=== PATIENT | male | born 1975 | race Two or more races ===

== ENCOUNTER 2020-04-30 15:12 | Emergency (ER) | payer MEDICAID ==
[~2020-04-30] VITALS: Ht 170.2 cm; Wt 86.2 kg
--- NOTE | 2020-04-30 15:12 | NUR ---
PT BIB SELF C/O PAINFUL URINATION AND BILATERAL FLANK PAIN SINCE TUESDAY. PT IS AAOX4, NOT IN RESPIRATORY DISTRESS, HOOKED TO BAR PORTER, KEPT RESTED AND COMFORTABLE. WILL CONTINUE TO MONITOR.
--- NOTE | 2020-04-30 15:53 | NUR ---
URINE SPECIMEN COLLECTED AND SENT TO LAB.
--- NOTE | 2020-04-30 15:59 | NUR ---
SEEN AND EXAMINED BY .
[2020-04-30] MEDS ORDERED: IV NS 0.9% 1,000 ML BAG IV ONE (16:00)
[2020-04-30] MEDS ORDERED: ONDANSETRON HCL/PF 4 MG/2 ML VIAL IVP ONE (16:00)
[2020-04-30] MEDS ORDERED: KETOROLAC TROMETHAMINE INJ 30 MG/ML VIAL IV ONE ×2 (16:00→18:00)
[2020-04-30] MEDS ORDERED: KETOROLAC TROMETHAMINE 15 MG/ML VIAL ONE ×2 (16:19→17:41)
[2020-04-30] MEDS ORDERED: ONDANSETRON HCL/PF 4 MG/2 ML VIAL ONE (16:19)
[2020-04-30 16:26] LABS: BASOPHILS % (AUTO) 0.6 % (0.0-2.0); HEMATOCRIT 46 % (39-51); HEMOGLOBIN 15.2 g/dL (13.5-17.5); LYMPHOCYTES # (AUTO) 0.9 /CMM (0.8-4.8); LYMPHOCYTES % (AUTO) 16.9 % (20.0-44.0); MEAN CORPUSCULAR HGB CONC 33 g/dl (31.0-36.0); MEAN CORPUSCULAR VOLUME 95 fL (80-96); MONOCYTES # (AUTO) 0.6 /CMM (0.1-1.30); MONOCYTES % (AUTO) 10.9 % (2.0-12.0); NEUTROPHILS # (AUTO) 3.8 /CMM (1.8-8.9); NEUTROPHILS % (AUTO) 71.6 % (43.0-81.0); PLATELET COUNT (AUTO) 175 /CMM (150-450); RED BLOOD CELL COUNT(AUTO) 4.88 MIL/uL (4.5-6.0); WHITE BLOOD COUNT (AUTO) 5.3 K/uL (4.3-11.0)
[2020-04-30 16:33] LABS: BILIRUBIN,URINE Negative (NEGATIVE); BLOOD, URINE Moderate Ery/uL (NEGATIVE); COLOR,URINE YELLOW (YELLOW); LEUKOCYTE ESTERASE ,URINE Negative (NEGATIVE); NITRITE, URINE Negative (NEGATIVE); PROTEIN,URINE >=300 mg/dl (NEGATIVE); UGLUCOSE 500 MG/DL mg/dL (NEGATIVE); UROBILINOGEN,URINE 0.2 EU/dL (0.2)
--- NOTE | 2020-04-30 16:42 | NUR ---
PT IS WHEELED TO CT SCAN VIA [facility].
[2020-04-30 16:59] LABS: ALBUMIN 3.3 g/dL (3.4-5.0); BILIRUBIN,DIRECT 0.1 mg/dL (0.0-0.2); BILIRUBIN,TOTAL 0.3 mg/dL (0.2-1.0); CALCIUM, SERUM 8.8 mg/dL (8.5-10.1); CREATININE 1.2 mg/dL (0.6-1.3); POTASSIUM 4.3 mmol/L (3.5-5.1); TOTAL PROTEIN, SERUM 7.6 g/dL (6.4-8.2)
[2020-04-30 17:42] LABS: BACTERIA,URINE Few /HPF (None Seen); SQUAMOUS EPITHELIAL CELL,UR Few /HPF (None Seen); WBC,URINE 0-2 /HPF (0-3)
[2020-04-30 18:39] VITALS: BP 132/84
--- NOTE | 2020-04-30 18:39 | NUR ---
IV removed. Catheter intact and site benign. Pressure and 4x4 applied to site. No bleeding noted. Patient discharged to home in stable condition. Written and verbal after care instructions given. Patient verbalizes understanding of instruction.
--- NOTE | 2020-05-01 19:04 | NUR ---
CALLED PATIENT JAQUAN GOTTI FOR POSITIVE COVID RESULT. Addendum: 05/01/20 at 1907 by ROALCANCES INSTTRUCTED PATIENT TO QUARANTINE X14 DAYS.
== END 2020-04-30 18:40 | disposition home or self-care (01) ==
LOC: ER 15:16
DX: U07.1 COVID-19 (principal); R91.8 Other nonspecific abnormal finding of lung field; R10.9 Unspecified abdominal pain; K40.90 Unilateral inguinal hernia, without obstruction or gangrene, not specified as recurrent; I10 Essential (primary) hypertension; E11.65 Type 2 diabetes mellitus with hyperglycemia
CPT/HCPCS: 36415; 71045; 74176; 76705; 80048; 80076; 81001; 83605; 83690; 85025; 93005; 96361; 96374; 96375; 96376; 99285; C9803; J1885 ×2; J2405; J7030; U0003

== ENCOUNTER 2022-04-26 19:44 | Emergency (ER) | payer MEDICAID ==
[~2022-04-26] VITALS: Ht 170.2 cm; Wt 81.6 kg
--- NOTE | 2022-04-26 21:23 | NUR ---
URINE COLLECTED AND SENT TO LAB
[2022-04-26 22:03] LABS: BILIRUBIN,URINE NEGATIVE (NEGATIVE); COLOR,URINE YELLOW (YELLOW); LEUKOCYTE ESTERASE ,URINE NEGATIVE (NEGATIVE); NITRITE, URINE NEGATIVE (NEGATIVE); PROTEIN,URINE NEGATIVE (NEGATIVE); UGLUCOSE NEGATIVE (NEGATIVE); UROBILINOGEN,URINE 0.2 EU/dL (0.2)
[2022-04-26] MEDS ORDERED: KETOROLAC TROMETHAMINE 15 MG/ML VIAL ONE (22:23)
[2022-04-26] MEDS ORDERED: KETOROLAC TROMETHAMINE INJ 30 MG/ML VIAL IV ONE (22:30)
[2022-04-26] MEDS ORDERED: IV NS 0.9% 1,000 ML BAG IV ONE (22:30)
--- NOTE | 2022-04-26 22:43 | NUR ---
20G IV STARTED AT [facility]. BLOOD DRAWN AND SENT TO LAB
[2022-04-26 23:29] LABS: BASOPHILS # (AUTO) 0.1 K/uL (0.0-0.2); BASOPHILS % (AUTO) 0.7 % (0.0-2.0); EOSINOPHILS % (AUTO) 1.4 % (0.0-6.0); HEMATOCRIT 45 % (39-51); HEMOGLOBIN 14.7 g/dL (13.5-17.5); LYMPHOCYTES # (AUTO) 3.1 K/uL (0.8-4.8); LYMPHOCYTES % (AUTO) 28.8 % (20.0-44.0); MEAN CORPUSCULAR HGB CONC 33 g/dl (31.0-36.0); MEAN CORPUSCULAR VOLUME 95 fL (80-96); MONOCYTES % (AUTO) 9.3 % (2.0-12.0); NEUTROPHILS # (AUTO) 6.4 K/uL (1.8-8.9); NEUTROPHILS % (AUTO) 59.8 % (43.0-81.0); PLATELET COUNT (AUTO) 296 K/uL (150-450); RED BLOOD CELL COUNT(AUTO) 4.76 MIL/uL (4.5-6.0); WHITE BLOOD COUNT (AUTO) 10.8 K/uL (4.3-11.0)
[2022-04-26 23:42] LABS: CALCIUM, SERUM 9.2 mg/dL (8.5-10.1)
[2022-04-26 23:56] LABS: ALBUMIN 3.9 g/dL (3.4-5.0); BILIRUBIN,DIRECT 0.1 mg/dL (0.0-0.2); BILIRUBIN,TOTAL 0.5 mg/dL (0.2-1.0); TOTAL PROTEIN, SERUM 7.3 g/dL (6.4-8.2)
[2022-04-26 23:58] LABS: POTASSIUM 3.8 mmol/L (3.5-5.1)
[2022-04-27] MEDS ORDERED: DOCU100C36 PO (00:26)
--- NOTE | 2022-04-27 00:36 | NUR ---
IV removed. Catheter intact and site benign. Pressure and 4x4 applied to site. No bleeding noted.Patient discharged to home in stable condition. Written and verbal after care instructions given. Patient verbalizes understanding of instruction.
--- NOTE | 2022-04-27 00:40 | NUR ---
Patient discharged to home in stable condition. Written and verbal after care instructions given. Patient verbalizes understanding of instruction.
[2022-04-27 00:52] VITALS: BP 125/84
== END 2022-04-27 00:52 | disposition home or self-care (01) ==
LOC: ER 19:55
DX: K59.00 Constipation, unspecified (principal); I10 Essential (primary) hypertension; E11.9 Type 2 diabetes mellitus without complications; Z79.899 Other long term (current) drug therapy
CPT/HCPCS: 99284; 74176; 96374; 96361; 85025; 80048; 83690; 80076; 81003; 36415; J7030; J1885

== ENCOUNTER 2023-01-10 18:02 | Emergency (ER) | payer MEDICAID ==
[~2023-01-10] VITALS: Ht 170.2 cm; Wt 81.6 kg
[~2023-01-10 18:02] MED LIST: DOCU100C36 PO
[2023-01-10 18:58] VITALS: BP 163/67; TEMP 98.2
[2023-01-10] MEDS ORDERED: IBUP-1957 PO (19:52)
[2023-01-10] MEDS ORDERED: CYCL10TA9 PO (19:52)
[2023-01-10] MEDS ORDERED: IBUPROFEN 600 MG TABLET ONE (19:56)
[2023-01-10] MEDS ORDERED: CYCLOBENZAPRINE 10 MG TABLET ONE (19:56)
[2023-01-10] MEDS ORDERED: IBUPROFEN 400 MG TABLET PO ONE (20:00)
[2023-01-10] MEDS ORDERED: CYCLOBENZAPRINE 10 MG TABLET PO ONE (20:00)
[2023-01-10 21:07] VITALS: O2SAT 95
== END 2023-01-10 21:07 | disposition home or self-care (01) ==
LOC: ER 18:13
DX: M54.41 Lumbago with sciatica, right side (principal); I10 Essential (primary) hypertension; E11.9 Type 2 diabetes mellitus without complications; Z79.899 Other long term (current) drug therapy

== ENCOUNTER 2023-01-13 01:46 | Emergency (ER) | payer MEDICAID ==
[~2023-01-13] VITALS: Ht 170.2 cm; Wt 81.6 kg
[~2023-01-13 01:46] MED LIST changes: +CYCL10TA9 PO; +IBUP-1957 PO
[2023-01-13 02:24] VITALS: BP 154/76; TEMP 98.1
[2023-01-13] MEDS ORDERED: PRED50TA PO (02:49)
[2023-01-13] MEDS ORDERED: HYDR-3980 PO (02:49)
[2023-01-13] MEDS ORDERED: HYDROCODONE/APAP 5/325MG TABLET PO ONE (03:00)
[2023-01-13] MEDS ORDERED: predniSONE 50 MG TABLET PO ONE (03:00)
[2023-01-13] MEDS ORDERED: HYDROCODONE/APAP 5/325MG TABLET ONE (03:15)
[2023-01-13] MEDS ORDERED: predniSONE 20 MG TABLET ONE (03:16)
[2023-01-13 03:42] VITALS: O2SAT 98
== END 2023-01-13 03:43 | disposition home or self-care (01) ==
LOC: ER 01:48
DX: M54.41 Lumbago with sciatica, right side (principal); I10 Essential (primary) hypertension; E11.9 Type 2 diabetes mellitus without complications

== ENCOUNTER 2023-01-22 08:23 | Emergency (ER) | payer MEDICAID ==
[~2023-01-22] VITALS: Ht 170.2 cm; Wt 81.6 kg
[~2023-01-22 08:23] MED LIST changes: +HYDR-3980 PO; +PRED50TA PO
[2023-01-22] MEDS ORDERED: KETOROLAC TROMETHAMINE INJ 30 MG/ML VIAL IV ONE ×2 (09:30→11:30)
[2023-01-22] MEDS ORDERED: CYCLOBENZAPRINE 10 MG TABLET PO ONE (09:30)
[2023-01-22] MEDS ORDERED: IV NS 0.9% 1,000 ML IV ONE (09:30)
[2023-01-22] MEDS ORDERED: CYCLOBENZAPRINE 10 MG TABLET ONE (09:35)
[2023-01-22] MEDS ORDERED: KETOROLAC TROMETHAMINE 15 MG/ML VIAL ONE ×2 (09:35→11:06)
[2023-01-22 09:44] LABS: BASOPHILS # (AUTO) 0.1 K/uL (0.0-0.2); BASOPHILS % (AUTO) 0.6 % (0.0-2.0); EOSINOPHILS # (AUTO) 0.2 K/uL (0.0-0.7); EOSINOPHILS % (AUTO) 1.3 % (0.0-6.0); HEMATOCRIT 51 % (39-51); HEMOGLOBIN 16.7 g/dL (13.5-17.5); LYMPHOCYTES # (AUTO) 2.9 K/uL (0.8-4.8); LYMPHOCYTES % (AUTO) 19.4 % (20.0-44.0); MEAN CORPUSCULAR HEMOGLOBIN 31 PG (26.0-33.0); MEAN CORPUSCULAR HGB CONC 33 g/dl (31.0-36.0); MEAN CORPUSCULAR VOLUME 95 fL (80-96); MONOCYTES # (AUTO) 1.6 K/uL (0.1-1.30); MONOCYTES % (AUTO) 10.8 % (2.0-12.0); NEUTROPHILS # (AUTO) 10.1 K/uL (1.8-8.9); NEUTROPHILS % (AUTO) 67.9 % (43.0-81.0); PLATELET COUNT (AUTO) 338 K/uL (150-450); RED BLOOD CELL COUNT(AUTO) 5.36 MIL/uL (4.5-6.0); RED CELL DISTRIBUTION WIDTH 13.7 % (11.5-15.0); WHITE BLOOD COUNT (AUTO) 14.9 K/uL (4.3-11.0)
[2023-01-22 09:52] LABS: CALCIUM, SERUM 10.2 mg/dL (8.5-10.1); CREATININE 1.2 mg/dL (0.6-1.3); POTASSIUM 4.5 mmol/L (3.5-5.1)
[2023-01-22 10:55] LABS: APPEARANCE,URINE CLEAR (CLEAR); BILIRUBIN,URINE NEGATIVE (NEGATIVE); BLOOD, URINE TRACE-INTA Ery/uL (NEGATIVE); COLOR,URINE YELLOW (YELLOW); KETONES,URINE TRACE mg/dL (NEGATIVE); LEUKOCYTE ESTERASE ,URINE NEGATIVE (NEGATIVE); NITRITE, URINE NEGATIVE (NEGATIVE); PROTEIN,URINE NEGATIVE (NEGATIVE); UGLUCOSE 1+ mg/dL (NEGATIVE); UROBILINOGEN,URINE 0.2 EU/dL (0.2)
[2023-01-22 11:04] LABS: ADD URINE CULTURE NO; BACTERIA,URINE Rare /HPF (None Seen); RBC,URINE 0-2 /HPF (0-2); SQUAMOUS EPITHELIAL CELL,UR Few /HPF (None Seen); WBC,URINE 0-2 /HPF (0-3)
[2023-01-22] MEDS ORDERED: HYDR-3980 PO (11:26)
[2023-01-22] MEDS ORDERED: KETO10TA2 PO (11:26)
[2023-01-22] MEDS ORDERED: CYCL10TA9 PO (11:26)
[2023-01-22] MEDS ORDERED: DOCU100C36 PO (11:26)
[2023-01-22 12:05] VITALS: BP 124/89; TEMP 97.8; O2SAT 98
== END 2023-01-22 12:06 | disposition home or self-care (01) ==
LOC: ER 08:32
DX: M54.41 Lumbago with sciatica, right side (principal); R10.9 Unspecified abdominal pain; I10 Essential (primary) hypertension; E11.9 Type 2 diabetes mellitus without complications; Z79.899 Other long term (current) drug therapy
CPT/HCPCS: 99285; 74176; 96374; 96361; 96376; 85025; 80048; 81001; 36415; J7030; J1885 ×2

== ENCOUNTER 2025-01-02 18:04 | Emergency (ER) | payer MEDICAID ==
[~2025-01-02] VITALS: Ht 165.1 cm; Wt 81.6 kg
[~2025-01-02 18:04] MED LIST changes: +KETO10TA2 PO
[2025-01-02] MEDS ORDERED: ACETAMINOPHEN ES 500 MG TABLET ONE (18:47)
[2025-01-02] MEDS ORDERED: ONDANSETRON HCL/PF 4 MG/2 ML VIAL ONE (18:47)
[2025-01-02 19:09] LABS: PLATELET COUNT (AUTO) 253 K/uL (150-450); RED BLOOD CELL COUNT(AUTO) 4.95 MIL/uL (4.5-6.0); RED CELL DISTRIBUTION WIDTH 13.4 % (11.5-15.0); WHITE BLOOD COUNT (AUTO) 13.5 K/uL (4.3-11.0)
[2025-01-02 19:14] LABS: CALCIUM, SERUM 9.4 mg/dL (8.5-10.1); CREATININE 1.3 mg/dL (0.6-1.3); SODIUM SERUM 138.0 mmol/L (136-145); UREA NITROGEN, BLOOD 22.0 mg/dL (7-18)
[2025-01-02 19:20] LABS: ASPARTATE AMINOTRANSFERASE 15.0 U/L (15-37); TOTAL PROTEIN, SERUM 7.5 g/dL (6.4-8.2)
[2025-01-02] MEDS: IV NS 0.9% 1,000 ML BAG IV ONE (19:20)
[2025-01-02] MEDS: ONDANSETRON HCL/PF 4 MG/2 ML VIAL IVP ONE (19:20)
[2025-01-02] MEDS: ACETAMINOPHEN ES 500 MG TABLET PO ONE (19:21)
[2025-01-02 19:23] LABS: APPEARANCE,URINE CLEAR (CLEAR); BLOOD, URINE TRACE-INTA Ery/uL (NEGATIVE); LEUKOCYTE ESTERASE ,URINE NEGATIVE (NEGATIVE); NITRITE, URINE NEGATIVE (NEGATIVE); UGLUCOSE NEGATIVE (NEGATIVE)
[2025-01-02 19:35] LABS: ADD URINE CULTURE NO
[2025-01-02 19:36] LABS: SQUAMOUS EPITHELIAL CELL,UR None Seen /HPF (None Seen)
[2025-01-02] MEDS ORDERED: ONDA4TAB5 PO (21:30)
[2025-01-02] MEDS ORDERED: ACET325T53 PO (21:30)
[2025-01-02 22:03] VITALS: BP 139/89; TEMP 98.3; O2SAT 95
== END 2025-01-02 22:04 | disposition home or self-care (01) ==
LOC: ER 18:10
DX: R51.9 Headache, unspecified (principal); R30.0 Dysuria; R11.0 Nausea; N50.812 Left testicular pain; N50.811 Right testicular pain; E11.9 Type 2 diabetes mellitus without complications; I10 Essential (primary) hypertension; Z79.52 Long term (current) use of systemic steroids
CPT/HCPCS: 99285; 96374; 96361; 76870; 85025; 80048; 83690; 80076; 81001; 36415; J2405; J7030; 87086-TC